=== PATIENT | female | born 1940 | race Caucasian/White ===

== ENCOUNTER 2019-05-13 08:58 | Outpatient (CLI) | payer MEDICARE, BC ==
--- NOTE | 2019-05-13 09:21 | BD ---
DEXA BONE DENSITY SCAN: DATE: 05/13/2019. COMPARISON: None. HISTORY: Postmenopausal female undergoing screening for osteoporosis. Lumbar Spine: BMD (g/cm2) L1 0.783 T-Score: -1.9 L2 0.727 T-Score: -2.7 L3 0.795 T-Score: -2.6 L4 0.806 T-Score: -2.3 L1-L4 0.779 T-Score: -2.4 Femoral Neck: 0.565 T-Score: -2.6 Total Femur: 0.693 T-Score: -2.0 FRAX-WHO fracture risk assessment tool was not reported as some T-scores are at or below -2.5 IMPRESSION: Lumbar spine osteopenia correlates with a moderately increased risk for fracture. However, there is e vidence of osteoporosis within the femoral neck, which correlates with a high associated risk for fracture. Transcribed Date/Time: 05/13/2019 9:35 AM
== END 2019-05-13 08:59 | disposition home or self-care (01) ==
LOC: BICMAMMO 08:58
PROVIDERS: ATTEND Internal Medicine
DX: Z13.820 Encounter for screening for osteoporosis (principal); K90.0 Celiac disease; K52.831 Collagenous colitis; M85.88 Other specified disorders of bone density and structure, other site; M81.0 Age-related osteoporosis without current pathological fracture
CPT/HCPCS: 77080